=== PATIENT | female | born 1985 | race Caucasian/White ===

== ENCOUNTER 2016-09-05 16:31 | Emergency (ER) | payer OTHER ==
[2016-09-05 16:36] VITALS: BP 121/74
--- NOTE | 2016-09-05 16:48 | ER Document Report ---
ED Medical Screen (RME) - General Chief Complaint: Foreign Body in Eye Stated Complaint: RIGHT EYE INJURY Mode of Arrival: Ambulatory Information source: Patient TRAVEL OUTSIDE OF THE [place] IN LAST 30 DAYS: No - HPI Patient complains to provider of: foreign body in right eye Notes: 09/05/16 16:47 That the beach today and reports having a piece of sand going her eye, now the eye is irritated and she feels as though she was unable to flush the sand out - Related Data Allergies/Adverse Reactions: No Known Allergies Allergy (Verified 09/05/16 16:46) Past Medical History Renal/ Medical History: Denies: Hx Peritoneal Dialysis Physical Exam - Vital signs Vitals: Temp Pulse Resp BP Pulse Ox 98.7 F 100 16 121/74 98 09/05/16 16:34 09/05/16 16:34 09/05/16 16:34 09/05/16 16:34 09/05/16 16:34 Course - Vital Signs Vital signs: Temp Pulse Resp BP Pulse Ox 98.7 F 100 16 121/74 98 09/05/16 16:34 09/05/16 16:34 09/05/16 16:34 09/05/16 16:34 09/05/16 16:34
[2016-09-05] MEDS ORDERED: TETRACAINE HCL 0.5% OPH SOLN 2 ML OD ONE (17:46)
--- NOTE | 2016-09-05 17:47 | ER Document Report ---
HPI - HPI Patient complains to provider of: Foreign body in eye Onset: This afternoon Onset/Duration: Sudden Quality of pain: Burning Pain Level: 4 Context: Patient states she was at the beach and it was very Tuesday. Patient reports that sand blew into her right eye. Patient feels like there is a foreign body still in her eye. Patient attempted to irrigate her eye multiple times without improvement of her symptoms. Associated Symptoms: Other - Foreign body to right eye Exacerbated by: Denies Relieved by: Denies Similar symptoms previously: No Recently seen / treated by doctor: No - ROS ROS below otherwise negative: Yes Systems Reviewed and Negative: Yes All other systems reviewed and negative - EENT EENT: REPORTS: Eye problems - CARDIOVASCULAR Cardiovascular: DENIES: Chest pain Past Medical History - General Information source: Patient - Social History Smoking Status: Never Smoker Chew tobacco use (# tins/day): No Frequency of alcohol use: None Drug Abuse: None Lives with: Family Family History: Reviewed & Not Pertinent Neurological Medical History: Reports: Hx Migraine Renal/ Medical History: Denies: Hx Peritoneal Dialysis Musculoskeltal Medical History: Reports Hx Arthritis Psychiatric Medical History: Reports: Hx Anxiety Past Surgical History: Reports: Other - PRK Vertical Provider Document - CONSTITUTIONAL Agree With Documented VS: Yes Exam Limitations: No Limitations General Appearance: WD/WN - INFECTION CONTROL TRAVEL OUTSIDE OF THE [place] IN LAST 30 DAYS: No - HEENT HEENT: Atraumatic, Normocephalic - NECK Neck: Normal Inspection - RESPIRATORY Respiratory: No Respiratory Distress O2 Sat by Pulse Oximetry: 98 - MUSCULOSKELETAL/EXTREMETIES Musculoskeletal/Extremeties: MAEW - NEURO Level of Consciousness: Awake, Alert, Appropriate - DERM Integumentary: Warm, Dry, No Rash Course - Vital Signs Vital signs: Temp Pulse Resp BP Pulse Ox 98.7 F 100 16 121/74 98 09/05/16 16:34 09/05/16 16:34 09/05/16 16:34 09/05/16 16:34 09/05/16 16:34 Procedures - Eye Procedure Right Foreign body removal: Right Fluorescein applied: Right Slit lamp used: No Eyes picture: 1 - sand grain FB, after removal with saline moistened swab, corresponding area with fluoroscein uptake Discharge - Discharge Clinical Impression: Corneal foreign body Qualifiers: Encounter type: initial encounter Laterality: right Qualified Code(s): T15.01XA - Foreign body in cornea, right eye, initial encounter Corneal abrasion, right Qualifiers: Encounter type: initial encounter Qualified Code(s): S05.01XA - Injury of conjunctiva and corneal abrasion without foreign body, right eye, initial encounter Condition: Stable Disposition: HOME, SELF-CARE Instructions: Corneal Abrasion ([facility]), Corneal Foreign Body ([facility]) Additional Instructions: Return immediately for any new or worsening symptoms Followup with your primary care provider, call tomorrow to make a followup appointment Follow-up with door cutter for further evaluation, call Tuesday for an appointment Instill 1 inch ribbon of erythromycin ointment to right eye 4 times a day for the next week. Forms: Return to Work Referrals: [facility] [Provider Group] - [facility] [[facility] - Follow up as needed
[2016-09-05] MEDS ORDERED: ERYTHROMYCIN 0.5% OPH OINTMENT 3.5 GM (ER DISP) OD PRN (18:14)
== END 2016-09-05 18:58 | disposition home or self-care (01) ==
LOC: ER 16:31
DX: T15.01XA Foreign body in cornea, right eye, initial encounter (principal); X58.XXXA Exposure to other specified factors, initial encounter; Y92.832 Beach as the place of occurrence of the external cause
CPT/HCPCS: 99283